=== PATIENT | male | born 1985 ===

== ENCOUNTER 2021-10-03 22:34 | Emergency (ER) | payer SELFPAY | END 2021-10-03 23:10 | disposition left against medical advice (07) | LOC: ED 22:34 | DX: M79.18 Myalgia, other site (principal); Z53.21 Procedure and treatment not carried out due to patient leaving prior to being seen by health care provider ==

== ENCOUNTER 2021-12-08 17:18 | Emergency (ER) | payer SELFPAY ==
[2021-12-09 03:28] LABS: Bilirubin,Urine NEG (Negative); Blood,Urine NEG (Negative); Color,Urine Yellow (Yellow); Protein,Urine <15 mg/dL mg/dL (Negative); Urobilinogen,Urine < 2 mg/dL (<2.0)
[2021-12-09 03:30] LABS: Mucus,Urine FEW /HPF
[2021-12-09 03:49] LABS: Hematocrit 44.6 % (35.5-45.6); Hemoglobin 14.4 gm/dl (11.8-15.2); Mean Corpuscular HGB Conc 32 % (32-34); Mean Corpuscular Volume 95 fl (84-94); Platelet Count 212 K/mm3 (140-440); Red Blood Count 4.68 M/mm3 (3.65-5.03); Red Cell Distribution Width 14.2 % (13.2-15.2)
[2021-12-09 04:12] LABS: Alanine Aminotransferase 40 units/L (7-56); Albumin 4.4 g/dL (3.9-5); BUN/Creatinine Ratio 8; Blood Urea Nitrogen 10 mg/dL (9-20); Calcium 9.6 mg/dL (8.4-10.2); Hemolysis Index 6
[2021-12-09] MEDS ORDERED: ONDANSETRON 4 MG ODT TAB PO ONE (04:48)
[2021-12-09] MEDS ORDERED: FAMOTIDINE 20 MG TAB PO ONE (04:48)
--- NOTE | 2021-12-09 04:48 | Emergency Department Report ---
Vomiting/Diarrhea - HPI Chief Complaint: Nausea/Vomiting/Diarrhea Stated Complaint: STOMACH PAIN Other History: 35-year-old male presents emergency department with nausea vomiting diarrhea x1 day. Patient reports he has a history of ulcers, however patient similar symptoms with partner,. Symptoms are without fever, no chest pain, no bloody stools or bloody vomit, no fever or chills, no bloody stools, no bloody diarrhea. He is able to tolerate oral intake, symptoms are worsened by nothing and improves with nothing. No recent travel. Also reports pain in his" joints, states he has gout and has run out of his pain medications. ED Review of Systems ROS: Stated complaint: STOMACH PAIN Other details as noted in HPI Constitutional: denies: chills, fever ENT: denies: throat pain Respiratory: denies: cough Cardiovascular: denies: chest pain, palpitations Endocrine: denies: excessive sweating Gastrointestinal: abdominal pain, nausea, vomiting, diarrhea Genitourinary: denies: urgency, dysuria Musculoskeletal: joint swelling, arthralgia. denies: back pain Skin: denies: rash Neurological: denies: headache Psychiatric: denies: homicidal thoughts, suicidal thoughts ED Past Medical Hx - Medications Home Medications: Home Medications Medication Instructions Recorded Confirmed Last Taken Type Acetaminophen/Codeine [Tylenol 1 tab PO Q6H PRN #12 tab 12/09/21 Unknown Rx /Codeine # 3 tab] Famotidine [Pepcid] 40 mg PO QHS #30 12/09/21 Unknown Rx Ondansetron [Zofran Odt] 4 mg PO Q8HR PRN #20 tab.rapdis 12/09/21 Unknown Rx allopurinoL [Zyloprim] 100 mg PO QDAY #30 tablet 12/09/21 Unknown Rx predniSONE [Deltasone] 20 mg PO QDAY #5 12/09/21 Unknown Rx Vomiting Diarrhea Exam - Exam General: Vital signs noted. No distress. Alert and acting appropriately. HEENT: Yes Moist Mucous Membranes, No Pharyngeal Erythema, No Pharyngeal Exudates Neck: No Adenopathy, No Rigidity Lungs: Yes Clear Lung Sounds, Yes Good Air Exchange, No Wheezes, No Nasal Flaring, No Retractions Heart exam: Regular: Yes Abdomen: Tenderness: No, Peritoneal Signs: No, Distention: No, Hyperactive Bowel sounds: No Skin exam: Rash: No Neurologic: Alert and oriented, no deficits. Musculoskeletal: No obvious swelling or deformity, patient is able to ambulate steadily without assistance, Exam: Well-appearing male in no acute distress, patient has been ambulating steadily, going back and forth to the vending machine to get snacks which has been tolerated without vomiting. ED Course Vital Signs 12/08/21 20:03 Temperature 98.5 F Pulse Rate 119 H Respiratory 18 Rate Blood Pressure 181/103 [Right] O2 Sat by Pulse 100 Oximetry ED Medical Decision Making - Lab Data Result diagrams: 12/09/21 03:24 12/09/21 03:24 - Medical Decision Making And labs are all reassuring, no white count, kidney function all reassuring, no signs of dehydration, patient is tolerating oral intake throughout ED course has not had any vomiting or diarrhea episodes ambulating steadily, is afebrile, passed p.o. challenge, most likely gastroenteritis. Will discharge home with antiemetics, dietary management and follow-up. I have also refilled his medications with gout allopurinol help regimen 5-day course of prednisone and few dose of tramadol for pain. Also place patient back on PPI, antiemetics, refill his blood pressure medicine, and also provided outpatient referral for further evaluation and management of his cardiac sympto ms Patient remained stable nontoxic-appearing, afebrile, ambulating steadily without assistance. Gone over ED findings with patient as well as plan for follow-up. Also discussed return precautions with patient, all questions and concerns addressed. Patient is stable to be discharged follow-up outpatient. Audio voice dictation device used, hence the chart might contain some dictation errors, mispronunciations, wrong spelling and wrong verbiage. Critical care attestation.: If time is entered above; I have spent that time in minutes in the direct care of this critically ill patient, excluding procedure time. ED Disposition Clinical Impression: Gout, History of stomach ulcers, Abdominal pain, Hypertension Disposition: 01 HOME / SELF CARE / HOMELESS Is pt being admited?: No Does the pt Need Aspirin: No Condition: Stable Instructions: Viral Gastroenteritis, Adult, [id number], Hypertension (ED) Prescriptions: Famotidine [Pepcid] 40 mg PO QHS #30 predniSONE [Deltasone] 20 mg PO QDAY #5 Acetaminophen/Codeine [Tylenol /Codeine # 3 tab] 1 tab PO Q6H PRN #12 tab PRN Reason: Pain , Severe (7-10) Ondansetron [Zofran Odt] 4 mg PO Q8HR PRN #20 tab.rapdis PRN Reason: Nausea allopurinoL [Zyloprim] 100 mg PO QDAY #30 tablet Referrals: JULIA SMALLS MD [Staff Physician] - 3-5 Days [facility] [place] [Provider Group] - 3-5 Days
[2021-12-09] MEDS ORDERED: HYDROcodone/ACETAMINOPHEN 5-325 MG TAB PO ONE (04:49)
[2021-12-09] MEDS ORDERED: predniSONE 20 MG TAB PO ONE (05:32)
[2021-12-09] MEDS ORDERED: LIDOCAINE VISCOUS 2% 15 ML ORAL LIQD PO ONE (05:32)
[2021-12-09] MEDS ORDERED: ALUM-MAG HYDROXIDE-SIMETHICONE 200-200-20MG/5ML ORAL LIQD 30 ML PO ONE (05:32)
[2021-12-09 06:07] VITALS: BP 135/89
== END 2021-12-09 06:12 | disposition home or self-care (01) ==
LOC: ED 17:18
DX: R10.9 Unspecified abdominal pain (principal); I10 Essential (primary) hypertension; M10.9 Gout, unspecified; K25.7 Chronic gastric ulcer without hemorrhage or perforation
CPT/HCPCS: 36415; 80053; 81001; 83690; 85027; 87086; 99283; J3490; Q0162